=== PATIENT | female | born 1965 | race Caucasian/White ===

== ENCOUNTER → 2017-05-15 | Outpatient (CLI) | payer OTHER ==
[~2017-05-15] MED LIST: ALBUTEROL-200 PUFFS/ IH; AMBIEN 10MG TAB10 MG PO; AMLODIPINE10 M2 PO; AVAPRO 150MG T150 MG PO; AVELOX400 MG PO; CELEXA40 MG PO; FLEXERIL10 MG PO; FLONASE 50 MCG16 GM; KEFLEX 500MG.500 MG PO; LEVAQUIN500 MG PO; LORTAB 5/500 501 TAB PO; OMEPRAZOLE40 MG PO; PERCOCET 5/3251 EACH PO; PREDNISONE 10MG10 MG PO; SINGULAIR 10 MG10 MG PO; SYMBICORT1 AE1 IH; WELLBUTRIN XL300 MG PO; Z-TAB1 TAB PO; ZYRTEC-D 12HR 51 TER PO
--- NOTE | 2017-05-15 23:18 | RADIOLOGY REPORT PS360 ---
LUMBAR SPINE 5 VIEWS HISTORY: LOW BACK PAIN low back pain Patient Age: 51 years: Female Ordering Physician: Daphne OLGUIN TECHNIQUE: 5 view lumbar spine series COMPARISON :No previous lumbar spine. Only med dir view from a May 2013 CT and chest FINDINGS The lumbar vertebral bodies are intact no compression fracture. Multilevel degenerative disc changes most evident at the lower T-spine particularly disc space narrowing and vacuum phenomena at T10-11, T11/12, T12/L1. Anterior marginal osteophytes most evident at these levels. Accentuated kyphosis through this segment but no significant compression fractures. There is also mild disc space narrowing at L1/L2 and posterior at L 2/L3.. Mild Disc space narrowing L5/S1. A fairly good alignment throughout the lumbar spine. Only mild levocurvature upper most T-spine. No spondylolysis nor listhesis. Prominent degenerative facet changes L5/S1 and L4/5 bilaterally right greater than left. SI joints unremarkable. Calcified aorta with. Diffuse demineralization. IMPRESSION: A multilevel degenerative disc changes most evident at the lower T-spine. Mild disc space posteriorly throughout the upper L-spine. Mild disc space narrowing L5/S1. Prominent facet arthropathy, hypertrophy of 5/S1 L4/5
--- NOTE | 2017-05-15 23:18 | RADIOLOGY REPORT PS360 ---
LUMBAR SPINE 5 VIEWS HISTORY: LOW BACK PAIN low back pain Patient Age: 51 years: Female Ordering Physician: Daphne OLGUIN TECHNIQUE: 5 view lumbar spine series COMPARISON :No previous lumbar spine. 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 Multilevel degenerative disc changes most evident at the lower T-spine particularly disc space narrowing and vacuum phenomena at T10-11, T11/12, T12/L1. Anterior marginal osteophytes most evident at these levels. Accentuated kyphosis through this segment but no significant compression fractures. There is also mild disc space narrowing at L1/L2 and posterior at L 2/L3.. Mild Disc space narrowing L5/S1. A fairly good alignment throughout the lumbar spine. Only mild levocurvature upper most T-spine. No spondylolysis nor listhesis. Prominent degenerative facet changes L5/S1 and L4/5 bilaterally right greater than left. SI joints unremarkable. Calcified aorta with. Diffuse demineralization. IMPRESSION: A multilevel degenerative disc changes most evident at the lower T-spine. Mild disc space posteriorly throughout the upper L-spine. Mild disc space narrowing L5/S1. Prominent facet arthropathy, hypertrophy of 5/S1 L4/5
== END ==
LOC: RAD 15:19
DX: M54.42 Lumbago with sciatica, left side (principal); M54.41 Lumbago with sciatica, right side

== ENCOUNTER → 2017-07-03 | Outpatient (CLI) | payer OTHER | LOC: LAB 10:53 | DX: R06.02 Shortness of breath (principal); R60.0 Localized edema ==

== ENCOUNTER → 2017-07-19 | Outpatient (CLI) | payer OTHER ==
--- NOTE | 2017-07-20 13:14 | RADIOLOGY REPORT PS360 ---
PROCEDURE: 2-D M-mode and color Doppler study INDICATIONS FOR THE TEST: Chest pain + COPD Heart Murmur Tobacco Smoking Palpitations Fatigue Syncope Edema Hypertension+Diabetes Mellitus Rheumatic Fever SOB+GARCIA Obesity+Hyperlipidemia Family History HD Additional History PATIENT INFORMATION HEIGHT: 65 WEIGHT:200 GENDER: Female B/P:130/80 2-D/M-MODE INTERPRETATION: 2-D MEASUREMENTS OBSERVED VALUES IN CMS Right Ventricular Dimension (RVDd) 2.9 Interventricular Septum (Thickness)(IVsd) 1.5 Left Ventricular Internal Dimensions(LVIDd) 4.7 Left Ventricular Posterior Wall (Thickness)(LVPWd) 1.1 Aortic Root 3.4 Aortic Cusp Separation 1.9 Left Atrial Dimensions (LAD) 4.3 2D 1. Technically difficult study because of the patient's factor and poor acoustic windows 2. The left atrium is mildly enlarged, left ventricle is normal size, there is mild concentric left ventricular hypertrophy, visually estimated ejection fraction 55% with no obvious regional wall motion abnormality. 3. The right atrium and right ventricle are mildly enlarged with normal contractility. 4. The aortic valve is thickened and calcified leaflet continue to display good mobility. 5. The mitral and tricuspid valve leaflets are minimally thickened. 6. The pulmonic valve is poorly visualized. 7. No significant pericardial effusion noted. DOPPLER INTERROGATION: Doppler interrogation of the aortic, mitral and tricuspid valvular presence of mild mitral and tricuspid regurgitation, tricuspid regurgitant jet velocity insufficient for calculation of the right ventricular systolic pressure, grade 1 diastolic dysfunction seen with tissue Doppler evidence of raised left atrial pressure. CONCLUSION: 1. Mild biatrial enlargement, normal left ventricular size, mild concentric left ventricular hypertrophy, visually estimated ejection fraction 55% with no obvious regional wall motion abnormality, grade 1 diastolic dysfunction seen with tissue Doppler evidence of raised left atrial pressure. 2. Mildly enlarged right ventricle with normal contractility. 3. Mild mitral and tricuspid regurgitation. 4. No significant pericardial effusion noted.
== END ==
LOC: RT 08:23
DX: I10 Essential (primary) hypertension (principal); R53.83 Other fatigue; R06.02 Shortness of breath; R60.0 Localized edema

== ENCOUNTER → 2017-09-05 | Outpatient (CLI) | payer OTHER ==
--- NOTE | 2017-09-06 08:43 | RADIOLOGY REPORT PS360 ---
CT CHEST W/O CONTRAST HISTORY: Cough with shortness of breath and bronchiectasis BRONCHIECTASIS ORDERING PHYSICIAN: RADHA HAWKINS MD PATIENT AGE: 51 years TECHNIQUE: Helical acquisition obtainedwithout contrast. Axial, sagittal, and coronal reformatted images are generated and reviewed. COMPARISON: 05/20/2013 FINDINGS: There is a small precarinal lymph node at 11 x 11 mm not significant changed. Coronary artery calcifications are present. No new areas of adenopathy evident. Patchy consolidation is present within the right upper lobe anteriorly and centrally consistent with pneumonia.. There is occlusion of the right middle lobe bronchus with collapse of the right middle lobe. There is severe narrowing of the right lower lobe bronchus. There is some increased soft tissue density in the right infrahilar region. It is difficult to determine if this is unopacified vessels, collapsed lung, or underlying mass. Repeat exam with IV contrast may be of further value. Bronchoscopy may also be of further value. Right hemidiaphragm is elevated with atelectatic change in the right lower lobe. Atelectatic changes are present in the left upper lobe and lingula.. No effusions. There is a small hiatal hernia. There are old fractures of the right seventh and eighth ribs anteriorly. IMPRESSION: 1. Occlusion of the right middle lobe bronchus with collapse of the right middle lobe. 2. Severe narrowing of the right lower lobe bronchus with right lower lobe volume loss and elevated right hemidiaphragm. 3. Increased soft tissue density in the right hilum difficult to further evaluate without IV contrast. May be due to combination of unopacified vessels and atelectatic lung. Cannot exclude soft tissue mass. CT of the chest with contrast may be of further value. Bronchoscopy also suggested. 4. Right upper lobe pneumonia. 5. Coronary artery disease
== END ==
LOC: RAD 13:55
DX: J47.9 Bronchiectasis, uncomplicated (principal)